=== PATIENT | female | born 1935 | race Caucasian/White ===

== ENCOUNTER → 2017-06-25 | Outpatient (CLI) | payer OTHER ==
[~2017-06-25] MED LIST: ATOR10 PO; CARV25 PO; CELE200 PO; CEPH500 PO; CHOL10002 PO; CITA20 PO; CLON.5 PO; CYAN1000 PO; Citalopram HBr10 MG PO; Cranberry500 M1 PO; DIPATR PO; DRON2.5 PO; DULO30 PO; DULO60 PO; Garlic1000 MG PO; HYDR1TAB94 PO; Hydrocodone-Ap1 EA23 PO; LEVFLO500 PO; LOPE2C PO; LORA.5 PO; LOSA50 PO; LOSARTAN-HCTZ1 EAC2 PO; MORP15ER PO; OXYB5 PO; Omeprazole20 M1 PO; POTCHL10ER PO; PRIM50 PO; PROBIOTIC1 EAC1 PO; Prilosec Otc20 MG PO; QUET100 PO; QUET25 PO; TRAM50; TRAM50 PO; Vitamin B Comple1 EA PO; WARF2.5; WARF2.5 PO; WARF5 PO; Zofran Odt4 MG PO
[2017-06-25 13:01] LABS: Appearance, Urine Clear (Clear); Bilirubin, Urine Neg (Neg); Blood, Urine 3+ (Neg); Color, Urine Yellow (P-Yellow); Glucose Qualitative, Urine Neg (Neg); Ketones, Urine Neg (Neg); Leukocyte Esterase, Urine Neg (Neg); Nitrite, Urine Neg (Neg); Protein, Urine Neg (Neg); Specific Gravity, Urine 1.015 (1.003-1.022); Urobilinogen, Urine NORM (Normal)
[2017-06-25 13:13] LABS: Bacteria Few /hpf; Squamous Epithelial Cells Many /hpf (Few); White Blood Cells, Urine 0-2 /hpf (0-5)
== END ==
LOC: LAB SHORT 12:31 → LAB 12:31
PROVIDERS: Family Medicine
DX: R31.9 Hematuria, unspecified (principal)
CPT/HCPCS: 81001

== ENCOUNTER 2017-09-03 16:29 | Emergency (ER) | payer OTHER ==
[~2017-09-03] VITALS: Ht 147.3 cm; Wt 44.9 kg
[2017-09-03 17:18] LABS: BASOPHILS ABSOLUTE AUTO 0.03 K/mm3 (0.00-0.23); BASOPHILS PERCENT AUTO 1 % (0-2); EOSINOPHILS ABSOLUTE AUTO 0.06 K/mm3 (0.00-0.68); EOSINOPHILS PERCENT AUTO 1 % (0-6); Hematocrit 37.9 % (33.0-51.0); Hemoglobin 12.8 g/dL (11.5-16.0); IMMATURE GRAN ABSOLUTE AUTO 0.02 K/mm3 (0.00-0.10); IMMATURE GRAN PERCENT AUTO 0 % (0-1); LYMPHOCYTES ABSOLUTE AUTO 1.11 K/mm3 (0.84-5.20); LYMPHOCYTES PERCENT AUTO 17 % (21-46); MONOCYTES ABSOLUTE AUTO 0.38 K/mm3 (0.16-1.47); MONOCYTES PERCENT AUTO 6 % (4-13); Mean Corpuscular HGB 33.4 pg (26.0-34.0); Mean Corpuscular HGB Conc 33.8 g/dL (31.5-36.5); Mean Corpuscular Volume 99 fL (80-100); Mean Platelet Volume 8.8 fL (9.1-12.4); NEUTROPHILS ABSOLUTE AUTO 4.86 K/mm3 (1.96-9.15); NEUTROPHILS PERCENT AUTO 75 % (41-73); Platelet Count 327 K/mm3 (150-400); RDW Coefficient Variation 11.8 % (11.7-14.2); RDW Standard Deviation 42.9 fL (35.1-46.3); Red Blood Cell Count 3.83 M/mm3 (3.80-5.20); White Blood Cell Count 6.46 K/mm3 (4.00-11.30)
[2017-09-03 17:29] LABS: Alanine Aminotransfer (ALT/SGP 31 U/L (12-78); Albumin/Globulin Ratio 1.2 (0.8-1.8); Alk Phos 77 U/L (50-136); Anion Gap 11 mmol/L (6-16); Aspartate Aminotrans (AST/SGOT 20 U/L (12-37); Bilirubin, Total 0.3 mg/dL (0.1-1.0); Blood Urea Nitrogen 15 mg/dL (8-24); Bun/Creatinine Ratio 24.2 (12.0-20.0); CO2, Blood 21 mmol/L (21-32); Calcium, Blood 9.3 mg/dL (8.5-10.1); Chloride, Blood 106 mmol/L (98-108); Creatinine, Blood 0.62 mg/dL (0.40-1.00); Globulin, Blood 3.4 g/dL (2.2-4.0); Glomerular Filtration Rate >60 (60-); Glucose, Blood 108 mg/dL (70-99); Potassium, Blood 3.8 mmol/L (3.5-5.5); Sodium, Blood 138 mmol/L (136-145); Total Protein, Blood 7.4 g/dL (6.4-8.2)
[2017-09-03 17:37] LABS: Source, Urine Clean Catch
[2017-09-03 17:50] LABS: Appearance, Urine Hazy (Clear); Bilirubin, Urine Neg (Neg); Blood, Urine 5+ (Neg); Color, Urine Yellow (P-Yellow); Glucose Qualitative, Urine Neg (Neg); Ketones, Urine 1+ (Neg); Leukocyte Esterase, Urine 1+ (Neg); Nitrite, Urine Pos (Neg); Protein, Urine 3+ (Neg); Urobilinogen, Urine NORM (Normal)
[2017-09-03 18:19] LABS: Bacteria Many /hpf; Squamous Epithelial Cells Few /hpf (Few); Yeast/Fungi Urine Few /hpf
[2017-09-03] MEDS ORDERED: Keflex500 MG PO (20:18)
== END 2017-09-03 20:43 | disposition home or self-care (01) ==
LOC: ER 16:29
PROVIDERS: Emergency Medicine
DX: R10.9 Unspecified abdominal pain (principal); Z88.0 Allergy status to penicillin; I48.91 Unspecified atrial fibrillation; Z85.3 Personal history of malignant neoplasm of breast; I10 Essential (primary) hypertension; E78.00 Pure hypercholesterolemia, unspecified
CPT/HCPCS: 80053; 81001; 83690; 85025; 87077; 87086; 87186; 93005; 93010; 96365; 99283; J0696; J7030

== ENCOUNTER → 2017-10-03 | Outpatient (CLI) | payer OTHER ==
[~2017-10-03] MED LIST changes: +Keflex500 MG PO
== END ==
LOC: LAB SHORT 13:59 → LAB 13:59 → LAB FUT 10-01 11:35
DX: R19.7 Diarrhea, unspecified (principal)
CPT/HCPCS: 87493

== ENCOUNTER 2018-11-08 22:23 | Observation (INO) | payer MEDICARE ==
[~2018-11-08] VITALS: Ht 167.6 cm; Wt 51.4 kg
[~2018-11-08 22:23] MED LIST changes: +PRIM250 PO
[2018-11-08] MEDS ORDERED: Bentyl10 MG (22:41)
[2018-11-08] MEDS ORDERED: GABA800 PO (22:41)
[2018-11-08] MEDS ORDERED: GLUC500 PO (22:42)
[2018-11-08] MEDS ORDERED: LIDO5TO TOP (22:43)
[2018-11-08] MEDS ORDERED: HYDR1TAB94 PO (22:43)
[2018-11-08] MEDS ORDERED: PROBIOTIC PO (22:45)
[2018-11-08] MEDS ORDERED: PSYLLIUM HUSK PO (22:46)
[2018-11-08] MEDS ORDERED: CYAN500 PO (22:47)
[2018-11-08] MEDS ORDERED: VITAMIN D32000 UNI1 PO (22:47)
[2018-11-08 22:49] LABS: BASOPHILS ABSOLUTE AUTO 0.03 K/mm3 (0.00-0.23); BASOPHILS PERCENT AUTO 0 % (0-2); EOSINOPHILS PERCENT AUTO 3 % (0-6); Hematocrit 37.3 % (33.0-51.0); Hemoglobin 12.2 g/dL (11.5-16.0); IMMATURE GRAN ABSOLUTE AUTO 0.02 K/mm3 (0.00-0.10); IMMATURE GRAN PERCENT AUTO 0 % (0-1); LYMPHOCYTES ABSOLUTE AUTO 1.04 K/mm3 (0.84-5.20); LYMPHOCYTES PERCENT AUTO 15 % (21-46); MONOCYTES ABSOLUTE AUTO 0.61 K/mm3 (0.16-1.47); MONOCYTES PERCENT AUTO 9 % (4-13); Mean Corpuscular HGB Conc 32.7 g/dL (31.5-36.5); Mean Corpuscular Volume 104 fL (80-100); Mean Platelet Volume 10.1 fL (9.1-12.4); NEUTROPHILS PERCENT AUTO 73 % (41-73); Platelet Count 231 K/mm3 (150-400); RDW Standard Deviation 49.4 fL (35.1-46.3); Red Blood Cell Count 3.59 M/mm3 (3.80-5.20)
[2018-11-08 23:03] LABS: International Normalized Ratio 1.68
[2018-11-08 23:08] LABS: Base Excess Venous 2.2 mmol/L; Bicarbonate Venous 26.5 mmol/L (24.0-30.0); PCO2 Venous 36.5 mmHg (38-42); PO2 Venous 131 mmHg (38-42); pH Blood Venous 7.46 (7.34-7.37)
[2018-11-08 23:09] LABS: Troponin I <0.015 ng/mL (0.000-0.040)
[2018-11-08 23:23] LABS: Alanine Aminotransfer (ALT/SGP 31 U/L (12-78); Albumin/Globulin Ratio 0.9 (0.8-1.8); Alk Phos 75 U/L (50-136); Anion Gap 8 mmol/L (6-16); Aspartate Aminotrans (AST/SGOT 25 U/L (12-37); Bilirubin, Total 0.1 mg/dL (0.1-1.0); Blood Urea Nitrogen 25 mg/dL (8-24); Bun/Creatinine Ratio 37.4 (12.0-20.0); CO2, Blood 26 mmol/L (21-32); Calcium, Blood 8.7 mg/dL (8.5-10.1); Chloride, Blood 115 mmol/L (98-108); Creatinine, Blood 0.67 mg/dL (0.40-1.00); Globulin, Blood 3.3 g/dL (2.2-4.0); Glomerular Filtration Rate >60 (60-); Glucose, Blood 118 mg/dL (70-99); Potassium, Blood 4.6 mmol/L (3.5-5.5); Sodium, Blood 149 mmol/L (136-145); Total Protein, Blood 6.3 g/dL (6.4-8.2)
[2018-11-08 23:36] LABS: Source, Urine Catheter
[2018-11-08 23:38] LABS: Bilirubin, Urine Neg (Neg); Blood, Urine 4+ (Neg); Glucose Qualitative, Urine Neg (Neg); Ketones, Urine Neg (Neg); Leukocyte Esterase, Urine 1+ (Neg); Nitrite, Urine Neg (Neg); Protein, Urine 1+ (Neg); Specific Gravity, Urine 1.015 (1.003-1.022); Urobilinogen, Urine NORM (Normal)
[2018-11-08 23:56] LABS: Appearance, Urine Clear (Clear); Bacteria Rare /hpf; Color, Urine Yellow (P-Yellow); Red Blood Cells, Urine 50-100 /hpf (0-2); Squamous Epithelial Cells Few /hpf (Few)
--- NOTE | 2018-11-09 04:14 | NUR ---
ADMIT PT ARRIVED TO ICU 16 MEDICAL STATUS AT 0315 VIA BED. PT IS AWAKE, ALERT, AND ORIENTED TO SELF. PT SPOUSE AT BEDSIDE UPON ARRIVAL. PT DENIES PAIN, DISCOMFORT, SOB, AND NAUSEA. PT ON ROOM AIR. VITAL SIGNS STABLE. IV ABX INFUSING UPON ARRIVAL. PT INCONTINENT OF URINE, ATTENDS IN PLACE. WILL CONTINUE TO MONITOR.
--- NOTE | 2018-11-09 07:03 | NUR ---
START OF SHIFT NOTE: RECEIVED REPORT FROM NABOR MCCURDY RN, ASSUMED CARE, PATIENT IS SLEEPING, SNORING NOTED, AWAKES BRIEFLY TO SPEECH, ALERT BUT SOMEWHAT FORGETFUL, VERY PLEASANT, FOLLOWS COMMANDS, COOPERATIVE, LUNG SOUND ARE CLEAR AND SLIGHTLY DIMINISHED, NSR WITH PVC'S, BOWEL TONES PRESENT AND HYPOACTIVE, PATIENT IS INCONTINENT OF URINE, WEARS ATTENDS, PEDAL PULSES PRESENT AND PALPABLE, CALL LIGHT IN REACH, WILL CONTINUE TO MONITOR.
--- NOTE | 2018-11-09 07:30 | NUR ---
PATIENT'S SPOUSE ARRIVED AND AT BEDSIDE, PATIENT VERBALIZED NEED TO VOID AND ASKED FOR BEDPAN, PLACED ON BEDPAN, BUT NO SUCCESS, UNABLE TO VOID AT THIS TIME, PER NOC SHIFT PATIENT HAS BEEN INCONTINENT AND WEARS ATTENDS, PATIENT'S UPDATED ON HER CONDITION, CALL LIGHT IN ROOM, WILL CONTINUE TO MONITOR.
--- NOTE | 2018-11-09 08:10 | NUR ---
DR. MCCORMACK IN TO SEE PATIENT, NO NEW ORDERS RECEIVED.
--- NOTE | 2018-11-09 10:23 | NUR ---
PATIENT ASKED FOR BEDPAN AGAIN, AND URINATED 350 CC OF CLEAR YELLOW URINE, CALL LIGHT IN REACH, WILL CONTINUE TO MONITOR.
--- NOTE | 2018-11-09 10:54 | NUR ---
JAMIR, PT IN TO SEE PATIENT, BOTH PATIENT AND SLEEPING, WILL COME BACK AFTER LUNCH.
--- NOTE | 2018-11-09 12:20 | NUR ---
REPORT CALLED TO WESLEY MORIN, ON MEDICAL FLOOR, PATIENT WILL BE TRANSFERRED TO ROOM 305.
--- NOTE | 2018-11-09 12:35 | NUR ---
PATIENT TRANSFERRED TO ROOM 305 VIA ICU BED BY [employer], ALL BELONGINGS AND MEDICATIONS WITH PATIENT.
--- NOTE | 2018-11-09 18:06 | NUR ---
SHIFT SUMMARY TRANSFER FROM ICU (MED STATUS THROUGHOUT STAY). INCREASED AMS AND DEHYDRATION, FALL AT HOME. SPOUSE REPORTS INABILITY TO CONTINUE TO CARE FOR HER AND IS INTERESTED IN FINDING CORRECTION PLACEMENT. ABLE TO STAND 2 PERSON ASSIST. [facility]. DENIES PAIN. ATTENDS IN PLACE USING BED NAZARIO WELL. CALLS APPROPRIATELY. MANY FAMILY MEMBERS AT BEDSIDE TODAY. SPOUSE TO RETURN IN A.M. DECREASED APPETITE OVER PAST WEEK PER SPOUSE. SKIN WNL.
--- NOTE | 2018-11-10 03:54 | NUR ---
SHIFT SUMMARY: PT IS ALERT AND ORIENTED. PT IS CALM AND COOPERATIVE WITH CARE. PT CALLS APPROPRIATELY. PT NOT OUT OF BED OVERNIGHT, MAX ASSIST FOR TANSFERS. PT DENIES PAIN, NAUSEA, VOMITING, AND SOB. PT SLEPT MUCH OF THE NIGHT WHEN NOT DISTURBED. POSSIBLE DISCHARGE TODAY. NO ACUTE CHANGES OR COMPLICATIONS. WILL CONTINUE TO MONITOR.
[2018-11-10 05:49] LABS: International Normalized Ratio 1.96; Prothrombin Time Results 19.5 Sec (9.7-11.5)
[2018-11-10 07:17] LABS: Hematocrit 34.5 % (33.0-51.0); Hemoglobin 11.3 g/dL (11.5-16.0); Mean Corpuscular HGB 33.7 pg (26.0-34.0); Mean Corpuscular HGB Conc 32.8 g/dL (31.5-36.5); Mean Corpuscular Volume 103 fL (80-100); Mean Platelet Volume 10.7 fL (9.1-12.4); Platelet Count 212 K/mm3 (150-400); RDW Coefficient Variation 12.8 % (11.7-14.2); RDW Standard Deviation 47.8 fL (35.1-46.3); Red Blood Cell Count 3.35 M/mm3 (3.80-5.20); White Blood Cell Count 6.43 K/mm3 (4.00-11.30)
[2018-11-10 07:29] LABS: Anion Gap 6 mmol/L (6-16); Blood Urea Nitrogen 17 mg/dL (8-24); CO2, Blood 25 mmol/L (21-32); Calcium, Blood 8.4 mg/dL (8.5-10.1); Chloride, Blood 109 mmol/L (98-108); Creatinine, Blood 0.65 mg/dL (0.40-1.00); Glomerular Filtration Rate >60 (60-); Glucose, Blood 85 mg/dL (70-99); Potassium, Blood 4.1 mmol/L (3.5-5.5); Sodium, Blood 140 mmol/L (136-145)
--- NOTE | 2018-11-10 19:00 | NUR ---
SHIFT SUMMARY COSMO WAS ALERT THIS MORNING AND GOT UP TO THE BSC WITH AO2 AND GAIT BELT. AFTER MORNING MEDS AND IN THE EARLY AFTERNOON, SHE WAS VERY LETHARGIC, UNABLE TO STAY AWAKE. HELD PAIN MEDS AND HELD GABAPENTIN AFTER AM DOSE, AND SHE HAS WOKEN UP THROUGHOUT THE DAY. UNABLE TO GET UP TO BSC WITH MAX AO2 IN THE AFTERNOON WHEN SHE WAS WEAKER, BUT IS ABLE TO GET UP AT THE END OF THE SHIFT WITH AO2. CONTINENT IN BSC AND BED NAZARIO. GOOD APPETITE THIS SHIFT. TREMORS PRESENT (BASELINE). DENIED ANY PAIN. TOOK MEDS PRESCRIBED. CALL LIGHT IN REACH, [facility]
--- NOTE | 2018-11-11 03:49 | NUR ---
Elderly Female admitted with weakness, multiple falls at home and suspected UTI that showed no growth on urine culture. PT has clear urine but has urgency and frequency and intermittant incontinence. PT has gross upper extremity intention tremors that invove head and neck. She has scheduled ms contin but denies and pain. RX held as with prior 2 doses held per emar. Did administer neurontin that was held earlier. PT alert forgetful, pleasant but high fall risk. Fall precautions in place and PT requires 2 moderate assist to BSC. She lowers head and neck and attempts to sit prior to contact with bed or chair. Needs extensive cues, fww gaitbelt and 2 assist. Has 6 Children, lives with Spouse who currently is unable to care for her. SW referral for dc planning present.
[2018-11-11 04:18] LABS: International Normalized Ratio 2.24; Prothrombin Time Results 22.1 Sec (9.7-11.5)
--- NOTE | 2018-11-11 19:24 | NUR ---
PT UP TO CHAIR FOR A SHORT TIME THIS AFTERNOON. FAMILY IN ROOM OFF AND ON. NO ACUTE CHANGES NOTED THIS SHIFT. WILL CONTINUE TO MONITOR AND REPORT TO ONCOMING RN
--- NOTE | 2018-11-12 03:44 | NUR ---
PT continues alert and forgetful, at high risk for falls. She is up with 2 assist to BSC and continues to deny acute pain. Does CO constipation DR ASTUDILLO updated and bowel care orders obtained. MS contin held due to lack of pain. VSS room air, no growth on urine culture. Continues to have gross intention tremors of upper extremities head and neck with activity but not at rest. Continues to need bed alarm to prevent unassisted transfers and falls. Tyrone has Spouse who requests discharge planning due to difficulty caring for PT.
[2018-11-12 05:15] LABS: International Normalized Ratio 1.87; Prothrombin Time Results 18.7 Sec (9.7-11.5)
--- NOTE | 2018-11-12 17:54 | NUR ---
REPORT GIVEN TO VALERIANO AT [facility]. ADVISED WILL GIVE COREG AND WARFARIN. ADVISED QUITE ABIT OF NARCOTICS AND MEDS THAT WILL MAKE HER DROWSEY WERE D'C. ADVISED GIVEN; FIBER CON AND COLACE THIS AM AND DULCOLAX X 2 AND MOM WITH WARMED PRUNE JUICE MELTED BUTTER NAD APPLE JUICE THIS AFTERNOON. NO B.M. FOR 3 DAYS, BUT STS GOES ABOUT EVERY 2-3 DAYS. ANSWER ALL QUESTIONS. PATIENT AWARE HER SMALL DOG CAN COME AND VISIT HER. 2 PERSON ASSIST TO W/C. TO [facility] THEN TO [facility].
== END 2018-11-12 17:50 ==
LOC: ER 22:23 → ICUW 22:24 → MEDS 22:24 → ICUW 11-09 03:15 → MEDS 11-09 12:33
PROVIDERS: Emergency Medicine; Internal Medicine; ADMIT Family Medicine
DX: R53.1 Weakness (principal); N39.0 Urinary tract infection, site not specified; E87.0 Hyperosmolality and hypernatremia; R68.89 Other general symptoms and signs; Z74.09 Other reduced mobility; I10 Essential (primary) hypertension; I48.2 Chronic atrial fibrillation; E78.5 Hyperlipidemia, unspecified; M79.7 Fibromyalgia; R25.1 Tremor, unspecified; Z91.81 History of falling; Z88.5 Allergy status to narcotic agent; Z88.0 Allergy status to penicillin; Z88.2 Allergy status to sulfonamides; Z88.8 Allergy status to other drugs, medicaments and biological substances; Z79.899 Other long term (current) drug therapy; Z79.01 Long term (current) use of anticoagulants
CPT/HCPCS: 36415; 70450; 71045; 80048; 80053; 81001; 82803; 84484; 85025; 85027; 85610; 87086; 93005; 93010; 96361; 96374; 97110; 97116; 97161; 97166; 97530; 97535; 99285-25; G0378; G0515; J1956; J7030; P9612

== ENCOUNTER → 2018-12-03 | Outpatient (CLI) | payer MEDICARE, OTHER ==
[~2018-12-03] MED LIST changes: +ARTHRITIS PAIN57 GM TOP; +ATOR40TA PO; +Bentyl10 MG; +CYAN500 PO; +GABA800 PO; +GLUC500 PO; +GRALISE600 MG PO; +LIDO5TO TOP; +METAMUCIL660 GM PO; +OSTEO BI-FLEX1 EAC2 PO; +POTA10T PO; +PROBIOTIC PO; +PSYLLIUM HUSK PO; +THERA-D2000 UNIT PO; +VITAMIN D32000 UNI1 PO
[2018-12-03 15:51] LABS: International Normalized Ratio 2.14; Prothrombin Time Results 21.2 Sec (9.7-11.5)
== END ==
LOC: LAB 13:54 → LAB SHORT 13:54
PROVIDERS: Family Medicine
DX: I48.0 Paroxysmal atrial fibrillation (principal); E55.9 Vitamin D deficiency, unspecified
CPT/HCPCS: 82306; 85610

== ENCOUNTER → 2018-12-11 | Outpatient (CLI) | payer OTHER ==
[2018-12-11 20:10] LABS: International Normalized Ratio 1.27; Prothrombin Time Results 13.2 Sec (9.7-11.5)
== END ==
LOC: LAB 16:40 → LAB SHORT 16:40
PROVIDERS: Family Medicine
DX: I48.0 Paroxysmal atrial fibrillation (principal)
CPT/HCPCS: 85610

== ENCOUNTER → 2018-12-11 | Outpatient (CLI) | payer OTHER | LOC: LAB SHORT 15:45 → LAB 15:45 → LAB FUT 12-12 18:30 | DX: N39.0 Urinary tract infection, site not specified (principal) | CPT/HCPCS: 87086 ==

== ENCOUNTER → 2018-12-19 | Outpatient (CLI) | payer OTHER | LOC: LAB SHORT 13:00 → LAB UCHC 13:00 | DX: K52.1 Toxic gastroenteritis and colitis (principal); T36.95XA Adverse effect of unspecified systemic antibiotic, initial encounter | CPT/HCPCS: 87493 ==

== ENCOUNTER 2018-12-25 15:16 | Emergency (ER) | payer OTHER ==
[~2018-12-25] VITALS: Ht 149.9 cm; Wt 45.4 kg
[~2018-12-25 15:16] MED LIST changes: -ARTHRITIS PAIN57 GM TOP; -ATOR40TA PO; -GRALISE600 MG PO; -METAMUCIL660 GM PO; -OSTEO BI-FLEX1 EAC2 PO; -POTA10T PO; -THERA-D2000 UNIT PO
[2018-12-25] MEDS ORDERED: ATOR40TA PO (15:23)
[2018-12-25] MEDS ORDERED: POTA10T PO (15:25)
[2018-12-25] MEDS ORDERED: GRALISE600 MG PO (15:25)
[2018-12-25] MEDS ORDERED: OSTEO BI-FLEX1 EAC2 PO (15:27)
[2018-12-25] MEDS ORDERED: THERA-D2000 UNIT PO (15:27)
[2018-12-25] MEDS ORDERED: CYAN500 PO (15:27)
[2018-12-25] MEDS ORDERED: HYDR1TAB94 PO (15:28)
[2018-12-25] MEDS ORDERED: METAMUCIL660 GM PO (15:28)
[2018-12-25] MEDS ORDERED: ARTHRITIS PAIN57 GM TOP (15:29)
[2018-12-25] MEDS ORDERED: WARF5 PO (15:35)
[2018-12-25 16:48] LABS: BASOPHILS ABSOLUTE AUTO 0.04 K/mm3 (0.00-0.23); BASOPHILS PERCENT AUTO 0 % (0-2); EOSINOPHILS ABSOLUTE AUTO 0.03 K/mm3 (0.00-0.68); EOSINOPHILS PERCENT AUTO 0 % (0-6); Hematocrit 42.3 % (33.0-51.0); Hemoglobin 13.9 g/dL (11.5-16.0); IMMATURE GRAN ABSOLUTE AUTO 0.03 K/mm3 (0.00-0.10); IMMATURE GRAN PERCENT AUTO 0 % (0-1); LYMPHOCYTES PERCENT AUTO 11 % (21-46); MONOCYTES ABSOLUTE AUTO 0.81 K/mm3 (0.16-1.47); MONOCYTES PERCENT AUTO 9 % (4-13); Mean Corpuscular HGB 33.4 pg (26.0-34.0); Mean Corpuscular HGB Conc 32.9 g/dL (31.5-36.5); Mean Corpuscular Volume 102 fL (80-100); Mean Platelet Volume 10.3 fL (9.1-12.4); NEUTROPHILS ABSOLUTE AUTO 7.06 K/mm3 (1.96-9.15); NEUTROPHILS PERCENT AUTO 79 % (41-73); Platelet Count 327 K/mm3 (150-400); RDW Coefficient Variation 12.9 % (11.7-14.2); RDW Standard Deviation 48.2 fL (35.1-46.3); Red Blood Cell Count 4.16 M/mm3 (3.80-5.20); White Blood Cell Count 8.97 K/mm3 (4.00-11.30)
[2018-12-25 17:08] LABS: Anion Gap 8 mmol/L (6-16); Blood Urea Nitrogen 21 mg/dL (8-24); Bun/Creatinine Ratio 30.3 (12.0-20.0); CO2, Blood 21 mmol/L (21-32); Calcium, Blood 8.9 mg/dL (8.5-10.1); Chloride, Blood 108 mmol/L (98-108); Creatinine, Blood 0.69 mg/dL (0.40-1.00); Glomerular Filtration Rate >60 (60-); Glucose, Blood 135 mg/dL (70-99); Potassium, Blood 4.2 mmol/L (3.5-5.5); Sodium, Blood 137 mmol/L (136-145)
--- NOTE | 2018-12-25 17:42 | NUR ---
Initial Visit: ED Palliative Care Consult for Goals of Care. Pt is A&Ox4 and denies pain at this time. She denies dyspnea, nausea, and anxiety at this time. Pt's Freeman is at bedside. Engaged in therapeutic discussion regarding goals of care. Pt and lives on their son's property in their own home. Listened as Freeman discussed a significant decline in Pt's strength and ability to do things. Pt is bed bound for much of the time with occasional assistance with transfering to the [facility]. Lately Pt has been too weak to transfer and has been using a bed hernandes. Pt reports her wishes are to avoid hospitalization and remain at home. Pt has POLST on file that states DNR and Comfort Measures Only. Confirmed with Pt that these are still her wishes. Pt reports she is willing to accept oral anitbiotics if needed but will not accept IV antibiotics. Discussed the importance of considering in home caregivers to assist with needs. reports the Medicaid process has started and anticipates assisstance soon. Educated on the importance of routine conversations with Pt's home health nurse and PCP incase Pt qualifies for Hospice in the future. Educated Freeman on the importance of respecting Pt's wishes and accepting medications that can be considered comfort measures. Educated on comfort measure philosophy with V/U made by Pt and . No other concerns reported at this time. Spoke with bedside nurse Wen and discussed case. Spoke with ED SOFIA Locke and discussed case. Plan for Pt to discharge from ED back home. Palliative Care will remain available.
== END 2018-12-25 18:40 | disposition home or self-care (01) ==
LOC: ER 15:16
PROVIDERS: Physician Assistant
DX: R53.1 Weakness (principal); R62.7 Adult failure to thrive; H57.02 Anisocoria; I10 Essential (primary) hypertension; I48.91 Unspecified atrial fibrillation; E78.00 Pure hypercholesterolemia, unspecified; Z85.3 Personal history of malignant neoplasm of breast; Z85.528 Personal history of other malignant neoplasm of kidney; Z66 Do not resuscitate; Z88.0 Allergy status to penicillin; Z88.5 Allergy status to narcotic agent; Z88.2 Allergy status to sulfonamides; Z88.1 Allergy status to other antibiotic agents; Z79.899 Other long term (current) drug therapy; Z79.01 Long term (current) use of anticoagulants; Z79.891 Long term (current) use of opiate analgesic
CPT/HCPCS: 36415; 71046; 80048; 85025; 99285-25